=== PATIENT | male | born 1980 | race Caucasian/White ===

== ENCOUNTER 2018-04-29 13:47 | Emergency (ER) | payer OTHER | END 2018-04-29 18:12 | disposition short-term general hospital (02) | LOC: ED 13:47 ==

== ENCOUNTER 2020-03-29 13:58 | Emergency (ER) | payer OTHER ==
[~2020-03-29] VITALS: Ht 175.3 cm; Wt 116.6 kg
[~2020-03-29 13:58] MED LIST: ACT300 PO; HYDROCHLOROTHIA25 MG PO; PRINIVIL10 MG PO; ZESTRIL20 MG PO
[2020-03-29 14:20] VITALS: Ht 175.3 cm; Wt 116.6 kg
[2020-03-29 16:50] VITALS: BP 148/89
== END 2020-03-29 16:50 | disposition home or self-care (01) ==
LOC: ED 13:58
DX: U07.1 COVID-19 (principal); Z88.1 Allergy status to other antibiotic agents; Z88.6 Allergy status to analgesic agent; Z90.89 Acquired absence of other organs